=== PATIENT | male | born 1960 | race Caucasian/White ===

== ENCOUNTER → 2016-09-03 | Day surgery (SDC) | payer OTHER ==
[~2016-09-03] VITALS: Ht 185.4 cm; Wt 92.6 kg
[~2016-09-03] MED LIST: ADVIL200 MG PO; AMBIEN5 MG PO; BENTYL10 MG PO; CATAPRES0.1 MG PO; CPAP INH; CREON 121 CAP PO; DEPAKOTE DELAY250 MG PO; DESYREL100 MG PO; FOLIC ACID 40400 MCG PO; LEXAPRO20 MG PO; LOPRESSOR25 MG PO; LORTAB 5-325 M1 EACH PO; MAG-OX-400(241400 MG PO; NORVASC5 MG PO; OXYCODONE HCL10 MG PO; OXYGEN M-15 INH; PRADAXA150 MG PO; PRENATAL 1+1)(P1 TAB PO; PROTONIX40 MG PO; TRICOR145 MG PO; VITAMIN B-121000 MCG PO; ZOFRAN8 MG PO; ZOLOFT100 MG PO
[2016-09-03 09:27] LABS: INR - (THERAPEUTIC) 1.2 (0.9-1.1); PROTIME 12.7 SECONDS (9.6-11.1)
== END | disposition disaster alternative care site (69) ==
LOC: GPOC 08-30 09:00 → GEND 07:14
PROVIDERS: Registered Nurse
PROC: 0DJ08ZZ Inspection of Upper Intestinal Tract, Via Natural or Artificial Opening Endoscopic (ICD-10-PCS; principal; 2016-09-03)
PROC: BD47ZZZ Ultrasonography of Gastrointestinal Tract (ICD-10-PCS; 2016-09-03)
PROC: 0DJD8ZZ Inspection of Lower Intestinal Tract, Via Natural or Artificial Opening Endoscopic (ICD-10-PCS; 2016-09-03)
DX: Z12.11 Encounter for screening for malignant neoplasm of colon (principal); K86.1 Other chronic pancreatitis; K29.70 Gastritis, unspecified, without bleeding; Z86.010 Personal history of colon polyps; I49.9 Cardiac arrhythmia, unspecified; Z79.01 Long term (current) use of anticoagulants; Z79.899 Other long term (current) drug therapy
CPT/HCPCS: J2001; J7030

== ENCOUNTER → 2016-10-24 | Outpatient (CLI) | payer OTHER | LOC: LNHI 16:35 | DX: I31.4 Cardiac tamponade (principal) ==

== ENCOUNTER → 2016-11-08 | Outpatient (CLI) | payer OTHER | END | disposition disaster alternative care site (69) | LOC: GRAD 10:32 | DX: K80.50 Calculus of bile duct without cholangitis or cholecystitis without obstruction (principal); R10.11 Right upper quadrant pain | CPT/HCPCS: A9537 ==